=== PATIENT | female | born 1940 | race Caucasian/White ===

== ENCOUNTER 2023-05-26 13:14 | Inpatient (IN) | payer MEDICARE, SELFPAY ==
--- NOTE | ~2023-05-26 | CT_ITS ---
EXAMINATION: CT HEAD WITHOUT CONTRAST (STROKE PROTOCOL) CLINICAL INFORMATION: Stroke protocol. Weakness after near syncopal episode. COMPARISON: None available. TECHNIQUE: Contiguous axial imaging was performed from the skull base to vertex without intravenous administration of contrast. This CT examination was performed using dose optimization techniques as appropriate, variously including the following: *Automated exposure control *Adjustment of mA and/or kV according to patient size (this includes techniques or standardized protocols for targeted exams where dose is matched to indication/reason for exam; i.e. extremities or head) *Use of iterative reconstruction technique DLP: 764 mGy-cm FINDINGS: No intracranial hemorrhage, large infarction, or mass lesion is seen. Mild, age-appropriate chronic bilateral periventricular white matter ischemic change. No extra-axial collection is appreciated. The ventricles are normal in size and configuration without evidence of hydrocephalus. The visualized paranasal sinuses and mastoid air cells are clear. Bilateral lens extractions. CT/CT head for stroke IMPRESSION: No acute intracranial finding. Dr. Go was directly informed of the findings by telephone at approximately 1:35 PM on 05/26/2023.
--- NOTE | ~2023-05-26 | MR_ITS ---
EXAMINATION: MR BRAIN WITHOUT CONTRAST CLINICAL INFORMATION: Near syncope. Seizure. COMPARISON: CTA head and neck from 05/26/2023. TECHNIQUE: MRI of the brain was obtained using routine sequences without contrast. FINDINGS: No focal restricted diffusion is demonstrated to suggest acute or subacute cerebral ischemia. No evidence of acute or chronic hemorrhagic products on heme-sensitive imaging. Scattered and partially confluent periventricular, deep white matter, and brainstem T2 FLAIR hyperintensities consistent with moderate underlying microangiopathy. The ventricles are normal in morphology and size. No abnormal mass effect. No midline shift. The hippocampi are symmetric in size, contour, and signal intensity. The temporal horns appear symmetric. Normal appearance of the pituitary gland. Normal positioning of the cerebellar tonsils. Normal arterial and venous vascular flow voids are present. Normal, homogeneous marrow signal. Mild mucosal thickening of the paranasal sinuses. No signal abnormalities within the mastoids. Bilateral lens extractions. MR/MR head/brain wo con IMPRESSION: 1. No acute intracranial abnormalities. 2. Moderate underlying microangiopathy. 3. No additional MRI abnormalities to explain the patient's spells.
--- NOTE | ~2023-05-26 | CT_ITS ---
EXAMINATION: CT angio head neck stroke CLINICAL INFORMATION: Right-sided weakness after near syncopal episode. COMPARISON: CT head 05/26/2023. TECHNIQUE: Ticket Sales Supervisor images were obtained. A CT angiogram of the head and neck was performed in the arterial phase after the intravenous administration of 70 mL Omnipaque 350. 3D images were processed on an independent workstation under concurrent supervision. Arterial stenoses are measured in accordance with NASCET criteria or similar method if applicable. This CT examination was performed using dose optimization techniques as appropriate, including one or more of the following: Automated exposure control, iterative reconstruction, and adjustment of technique factors (mA and/or kVp) according to patient size (this includes techniques or standardized protocols for targeted exams where dose is matched to indication/reason for exam). Fleischner Society criteria for the followup of incidental pulmonary nodules was implemented if appropriate. Total exam dose-length product 1632 mGy-cm FINDINGS: CT angiogram neck: Scattered atheromatous calcification involves the aortic arch apex. Origins of the major aortic branches are patent. Common carotid arteries are normal. There is a small amount of eccentric atherosclerotic plaque at the carotid bifurcations. No stenosis of the extracranial internal carotid arteries. Cervical segments of the vertebral arteries are patent. CT angiogram head: Intracranial internal carotid arteries are normal. Intradural vertebral artery segments and basilar artery are normal. Anterior, middle, and posterior cerebral complexes are normal. No intracranial large vessel occlusion. No identifiable aneurysm or high flow vascular lesion. Other: There is a multinodular thyroid goiter. The dominant nodule within the left thyroid lobe measures up to 2.4 centers in diameter. Visualized soft tissues of the neck are otherwise unremarkable. Lung apices are clear. No acute osseous finding. Specifically no worrisome lytic or blastic osseous lesion. There is multilevel degenerative spondylosis of the cervical spine. Grossly no spinal canal compromise. CT/CT angio head neck stroke IMPRESSION: Unremarkable examination in that there is no stenosis of the cervical carotid or vertebral arteries. No intracranial large vessel occlusion. This critical result was discussed with Rosy Go at 1:49 PM on 05/26/2023 and it was ascertained that the content and urgency of the report was understood at the time of direct communication.
--- NOTE | 2023-05-26 13:19 | ECG_ITS ---
Test Reason : STROKE Blood Pressure : / mmHG Vent. Rate : 065 BPM Atrial Rate : 065 BPM P-R Int : 134 ms QRS Dur : 092 ms QT Int : 432 ms P-R-T Axes : 049 017 024 degrees QTc Int : 449 ms Normal sinus rhythm Normal ECG No previous ECGs available Referred By: Rosy Go Electronically Signed By:Gene Cope
--- NOTE | 2023-05-26 13:27 | ED_ITS ---
HPI - Neuro Symptoms/Deficit General Chief Complaint: Stroke Stated Complaint: R SIDED WEAKNESS SLURRED SPEECH Time Seen by Provider: 05/26/23 13:15 Source: patient Mode of arrival: EMS Limitations: no limitations History of Present Illness HPI Narrative: 82 yo female with PMH of HTN prior seizure in 80s confirmed by EEG not on seizure medications for many years was at [facility] about to eat a bagel when she felt weak, tunnel vision like she was going to pass out. Staff saw R arm shake then almost had full syncopal event. Upon waking she denies confusion. No full body shaking no incontinence, no postictal state. EMS report aphasia and R sided weakness that is improving. On arrival to the ED she has no weakness or aphasia but when raising R arm she has noted tremors. Onset (ago): minute(s) (20) Timing confirmed by: caregiver Location: speech, right arm and right leg History of same: No Severity: moderate Quality: weak Relieving factors: time and rest Exacerbating factors: none Context: sudden onset On Anticoagulants: No Associated symptoms: other (occurred after near syncopal event while sitting and shaking in R arm noted) Treatments Prior to Arrival: none Related Data Home Medications Medication Instructions Recorded Confirmed aspirin 81 mg chewable tablet 81 mg PO BEDTIME 05/26/23 05/26/23 cholecalciferol (vitamin D3) 25 25 mcg PO DAILY 05/26/23 05/26/23 mcg (1,000 unit) tablet hydrochlorothiazide 25 mg tablet 25 mg PO DAILY 05/26/23 05/26/23 ibuprofen 600 mg tablet (IBU) 600 mg PO TID PRN Pain 05/26/23 05/26/23 lisinopril 10 mg tablet 10 mg PO DAILY 05/26/23 05/26/23 multivitamin 1 tab PO DAILY 05/26/23 05/26/23 omega-3 fatty acids 1,000 mg PO DAILY 05/26/23 05/26/23 vitamin B complex 1 cap PO DAILY 05/26/23 05/26/23 vitamins A,C,H-kfoa-fmaygh 2,148 1 tab PO DAILY 05/26/23 05/26/23 mcg-113 mg-45 mg-17.4 mg tablet (PreserVision AREDS) zolpidem 10 mg tablet 5 mg PO BEDTIME insomnia 05/26/23 05/26/23 Allergies Allergy/AdvReac Type Severity Reaction Status Date / Time Unable to Assess Allergy Verified 05/26/23 13:19 Review of Systems Review of Systems: Constitutional : No Fever, No Chills, No Fatigue ENT/Mouth : No sore throat, No Rhinorrhea Eyes: No Eye Pain, No Swelling, No Redness Cardiovascular : No Chest Pain, No SOB, No Dyspnea on Exertion Respiratory : No Cough, No Sputum Gastrointestinal : No Nausea, No Vomiting, No Diarrhea, No abdominal Pain Genitourinary : No Dysuria, No Urinary Frequency, No Hematuria, Musculoskeletal : No joint pain, No Myalgias, No Joint Swelling Skin : No Skin Lesions, No rash Neuro : pos Weakness, No Numbness, No Dizziness, no Headache, pos near syncope Psych : No Anxiety/Panic, No Depression All other systems reviewed and are negative [facility] Past Medical History Source: old records reviewed Medical History HTN (hypertension) Seizure Social History Social History (Updated 05/26/23 @ 13:36 by Rosy Go DO) Alcohol intake: current Alcohol intake frequency: holidays/special occasions only Patient Tobacco Use Status: Never used Tobacco Smoked in Last 30 Days: No Use of substances other than those prescribed or required for medical reasons: No Advance Directives: No Physical Exam Vital Signs: Vital Signs: Last Vital Signs Temp 98.1 F 05/26/23 13:52 Pulse 88 05/26/23 13:52 Resp 18 05/26/23 13:52 BP 155/60 H 05/26/23 13:52 Pulse Ox 99 05/26/23 13:52 O2 Del Method Room Air 05/26/23 13:52 BMI result Body Mass Index 39.9 Appearance: Alert. Oriented X3. No acute distress. Eyes: Pupils equal, round and reactive to light. ENT: Pharynx normal. Neck: Normal inspection. Neck supple. CVS: Normal heart rate and rhythm. Pulses normal. Respiratory: No respiratory distress. Breath sounds normal. Abdomen: Soft and nontender. Skin: Skin warm and dry. Normal skin color. Normal skin turgor. Extremities: No lower extremity edema. No calf ttp Neuro: Oriented X 3. No motor deficit. No sensory deficit. slight tremor in R arm when raising but otherwise intact Medications Administered Discontinued Medications Generic Name Dose Route Start Last Admin Trade Name Freq PRN Reason Stop Dose Admin Aspirin 325 mg 05/26/23 14:32 05/26/23 15:01 Aspirin Enteric Coated 325 Mg Tablet. PO 05/26/23 14:33 325 mg ONCE ONE Administration Iohexol 70 ml 05/26/23 13:39 05/26/23 13:40 Iohexol 350 Mg/Ml 100 Ml Infus..Btl IV 05/26/23 13:40 70 ml ONCE ONE Administration Medical Decision Making Medical Decision Making MDM Narrative: 82 yo female with PMH of seizures but no events since the not on medications, HTN had near syncopal event then shaking on R arm noted and re portedly then had aphasia and R sided weakness with EMS her symptoms of speech are resolved the only thing noted is with arm raising that she has a slight tremor. Her NIH is 0 symptoms are mild and not debilitating and rapidly improving she is not a candidate for TNK. She will get labs, EKG, stroke protocol. Differential Diagnosis Differential Diagnoses: The differential diagnosis associated with the presentation includes TIA, stroke, focal seizure, near syncope Admission/Observation Consideration of admission/observation: Escalation of care including admission/observation considered will need admission for TIA vs focal seizure Consult Healthcare Provider Management of the patient was discussed with: Hospitalist (will admit) Lab Data [facility] Lab Attestation statement: I reviewed the patient's lab results. Independent Interpretation I performed an independent interpretation of an: EKG and CT Scan Interpretation: Rate: 65 Rhythm: NSR [place]: normal Normal P waves. Normal ANTHONY. Normal QRS complex. ST T wave : normal no MASOOD qTC: 449 prior studies: no acute ischemia The study has been interpreted contemporaneously by me. . Radiology Impression Discussion of test interpretation with radiology: I discussed test interpretation with the radiologist and I have reviewed the radiologist's reading. Radiologist Impression: 136pm no ICH 149pm CTA negative no LVO Independent Historian Clinical information obtained from an independent historian. History obtained from or confirmed by: EMS NIH Stroke Scale Internal: Initial- Upon Arrival Level of Consciousness: Alert Level of Consciousness Questions: Answers both questions correctly Level of Consciousness Commands: Performs both tasks correctly Best Gaze: Normal Visual: No visual loss Facial Palsy: Normal Motor Arm (Right): No drift Motor Arm (Left): No drift Motor Leg (Right): No drift Motor Leg (Left): No drift Sensory: Normal Best Language: No aphasia Dysarthia: Normal Extinction and Inattention: No abnormality Critical Care Time Critical Care Time Critical Care Time: Yes Total Critical Care Time: 45 Attestation: stroke protocol, family discussion I attest to this time spent taking care of the patient Discharge Plan Discharge Clinical Impression: Near syncope Transient cerebral ischemia Qualifiers: Transient cerebral ischemia type: unspecified Qualified Code(s): G45.9 - Transient cerebral ischemic attack, unspecified Patient Disposition: Admitted As Inpatient
[2023-05-26 13:31] VITALS: BP 115/60; PULSE 74; O2SAT 98
[2023-05-26] MEDS: iohexoL 350 MG/ML 100 ML INFUS..BTL 70 ML IV (13:40)
[2023-05-26 13:52] VITALS: BP 155/60; PULSE 88; RESP 18; TEMP 36.7; O2SAT 99; BMI 39.9
[2023-05-26] MEDS: Aspirin Enteric Coated 325 MG TABLET.DR PO (15:01)
--- NOTE | 2023-05-26 15:03 | PC.NURSE ---
alert and oriented, respirations even and unlabored. passed swallow eval, medicated per the MAR. speaking in full clear sentences
--- NOTE | 2023-05-26 15:14 | PHA.MEDREC ---
Pharmacy Consult ? Medication Reconciliation Pharmacy has completed the medication reconciliation. Confirmed medications with patient and through claim history. Patient reports that she takes 1 tab of preservision and not the recommended dose of 2 tabs because she has a reaction (diarrhea).
[2023-05-26 16:23] LABS: Appearance Urine Clear; Color Urine Yellow; Glucose Urine UA Negative (Negative); Leukocyte Esterase Urine Negative (Negative); Nitrite Urine Negative (Negative); PH 6.5 (5.0-9.0); Specific Gravity - Urine <= 1.005 (1.005-1.025); Urine Blood Negative (Negative); Urine Ketones Negative (Negative); Urine Protein Negative (Neg-Trace)
--- NOTE | 2023-05-26 17:03 | PC.NURSE ---
ambulated to the bathroom to provide urine sample with steady gait. patient difficult stick, multiple attempts to obtain blood work.
[2023-05-26 18:21] VITALS: BP 131/55; PULSE 69; RESP 16; O2SAT 96
--- NOTE | 2023-05-26 18:25 | PC.NURSE ---
lab work obtained and sent
[2023-05-26 18:28] LABS: MANUAL DIFF FLAG NO
[2023-05-26 18:32] LABS: Basophils Percent Auto 0.5 % (0-2); Eosinophils Absolute Auto 0.1 X10*3/uL (0.0-0.4); Eosinophils Percent Auto 1.2 % (0-4); Hematocrit 40.2 % (37.0-47.0); Hemoglobin 13.2 g/dl (12.0-16.0); Imm Gran Abs Auto 0.05 X10*3/uL (0.00-0.03); Imm Gran Pct Auto 0.6 % (0.0-0.4); Lymphocytes Absolute Auto 1.4 X10*3/uL (1.2-4.9); Lymphocytes Percent Auto 18.3 % (20-40); Mean Corpuscular HGB Conc 32.8 g/dl (31.0-35.0); Mean Corpuscular Volume 91.4 fL (80.0-98.0); Mean Platelet Volume 11.2 fL (9.4-12.3); Monocytes Absolute Auto 0.6 X10*3/uL (0.1-1.2); Monocytes Percent Auto 7.4 % (2-11); Neutrophils Absolute Auto 5.6 x10*3/uL (2.0-8.3); Platelet Count 185 X10*3/uL (160-400); White Blood Count 7.7 X10*3/uL (4.8-10.8)
[2023-05-26 18:39] LABS: Prothrombin Time 12.5 SEC (11.1-13.3)
[2023-05-26 18:41] LABS: Partial Thromboplastin Time 25.4 SEC (26.0-36.8)
[2023-05-26 18:53] LABS: Alanine Aminotransferase 17 U/L (0-31); Albumin Level 3.7 g/dL (3.5-5.0); Alkaline Phosphatase 90 U/L (39-117); Anion Gap 11 (12-20); Aspartate Amino Transferase 21 U/L (5-31); Bilirubin Direct 0.2 mg/dL (0.0-0.5); Bilirubin Total 0.4 mg/dL (0.0-1.0); Blood Urea Nitrogen 31 mg/dL (9-16); Calcium 9.1 mg/dL (8.4-10.2); Carbon Dioxide 28 mmol/L (22-29); Chloride 104 mmol/L (96-108); Cholesterol 160 mg/dL (<200); Creatinine Clr Calc Pharmacy 60.5; Estimated Glomerular Filt Rate 59; Glucose Random 153 mg/dL (60-115); HDL Cholesterol 53 mg/dL (>40); LDL Cholesterol Calculated 94 mg/dL (<100); Lipase 75 U/L (8-78); Magnesium 1.9 mg/dL (1.6-2.6); Potassium 3.4 mmol/L (3.3-5.1); Sodium 140 mmol/L (135-145); Total Protein 6.2 g/dL (6.5-8.0); Triglycerides 66 mg/dL (<150)
[2023-05-26 19:01] LABS: Troponin-I High Sensitivity < 2.7 ng/L (<3.5-17.0)
[2023-05-26 19:09] LABS: Glucose, Whole Blood 114 mg/dL (60-115)
[2023-05-26 19:11] VITALS: BP 149/61; PULSE 69; RESP 18; TEMP 36.8; O2SAT 95
--- NOTE | 2023-05-26 19:11 | PC.NURSE ---
Assumed care of pt. Pt lying on stretcher, family at bedside. Pt neuro intact, AxO x4, speech clear, no deficits, symmetrical. VSS as charted. Pending disposition.
--- NOTE | 2023-05-26 20:07 | PM.IMHP ---
History of Present Illness Date of Service: 05/26/23 Attending physician on admission: Lashon Buckner Chief Complaint: dizziness, near syncope, rue convulsions 82 year old female with history of hypertension, right breast cancer s/p mastectomy, and remote history of seizure disorder (grand mal seziure x2 on eeg in 1983, no meds since) presented to the ED earlier today following an episode of near-syncope and convulsions that occurred earlier today while at the [facility]. She states that she was seated eating a bagel playing bridge with friends when she developed sudden onset generalized weakness, malaise, sweats, flushed face, blurred/tunnel vision, and dizziness. She states this lasted for about 15 minutes before resolving. However, after the episode, friends noted she appeared very pale. She states also during the episode, while in the ambulance, and on arrival to the hospital, she was experiencing right upper extremity tremors/convulsions with weakness/heaviness in the arm that has now resolved. She states she had a similar episodes several years ago and was seen at [facility] with negative cardiac work up (unremarkable echo and holter per patient) without any recurrence since. She denies fevers, chills, st, recent illness, abd pain, nausea, vomiting, diarrhea, urinary symptoms, cough, sob, palpitations, or chest pain. No ongoing visual changes, weakness, paresthesias, or lightheadedness. On arrival patient slighty hypertensive to 149/61, vitals otherwise normal. Orthostatic VS requested. Hematology studies unremarkable. Renal function and electrolyte levels baseline. Hemoglobin A1c pending. Troponin Will detectable limits. Hepatic function normal. Cholesterol levels within normal limits. Urinalysis unremarkable. CT head negative for any acute intracranial abnormality. CTA head/neck negative for any acute intracranial abnormality, hemodynamically significant stenosis or large vessel occlusion. EKG shows NSR, rate 65, no ST/T-wave abnormality. In the ED, given 325 mg aspirin. Review of Systems Review of Systems: Yes all other systems are reviewed and are negative [facility] Medical History HTN (hypertension) Seizure Social History (Updated 05/26/23 @ 13:36 by Rosy Go DO) Alcohol intake: current Alcohol intake frequency: holidays/special occasions only Patient Tobacco Use Status: Never used Tobacco Smoked in Last 30 Days: No Use of substances other than those prescribed or required for medical reasons: No Advance Directives: No Meds Allergies Allergy/AdvReac Type Severity Reaction Status Date / Time carbamazepine [From Tegretol] Allergy Rash Verified 05/26/23 20:22 celecoxib [From Celebrex] Allergy Rash Verified 05/26/23 20:22 desvenlafaxine [From Pristiq] Allergy Rash Verified 05/26/23 20:22 gabapentin Allergy Rash Verified 05/26/23 20:22 hydromorphone [From Dilaudid] Allergy Rash Verified 05/26/23 20:22 naproxen Allergy Rash Verified 05/26/23 20:22 Penicillins Allergy Rash Verified 05/26/23 20:22 phenytoin [From Dilantin] Allergy Rash Verified 05/26/23 20:22 pregabalin [From Lyrica] Allergy Rash Verified 05/26/23 20:22 sulfamethoxazole Allergy Rash Verified 05/26/23 20:22 [From Bactrim] Tetracyclines Allergy Rash Verified 05/26/23 20:22 tramadol [From Ultram] Allergy Rash Verified 05/26/23 20:22 trimethoprim [From Bactrim] Allergy Rash Verified 05/26/23 20:22 Active Medications: Current Medications Acetaminophen (Acetaminophen 325 Mg Tablet) 650 mg PO Q6H PRN PRN Reason: Pain, Mild (Pain Scale 1-3) Aspirin (Aspirin 81 Mg Tab.Chew) 81 mg PO BEDTIME [facility] Enoxaparin Sodium (Enoxaparin Sodium 40 Mg/0.4 Ml Syringe) 40 mg SUBCUT Q24H [facility] Hydrochlorothiazide (Hydrochlorothiazide 25 Mg Tablet) 25 mg PO DAILY [facility]; Protocol Lisinopril (Lisinopril 10 Mg Tablet) 10 mg PO DAILY JOEY; Protocol Multivitamins/Vitamin C (Multivitamin Tablet) 1 tab PO DAILY [facility] Non-Formulary Medication ([place]-3 Fatty Acids) 1,000 mg PO DAILY [facility] Ondansetron HCl (Ondansetron Hcl 4 Mg/2 Ml Vial) 4 mg IVPUSH Q8H PRN PRN Reason: Nausea and Vomiting Senna (Sennosides 8.6 Mg Tablet) 17.2 mg PO BEDTIME PRN PRN Reason: Constipation Sodium Chloride (0.9 % Sodium Chloride Flush 3 Ml Syringe) 3 ml IVFLUSH QSHIFT [facility] Vitamin D (Cholecalciferol (Vitamin D3) 25 Mcg Tablet) 25 mcg PO DAILY [facility] Home Medications Medication Instructions Recorded Confirmed Last Taken Type aspirin 81 mg chewable tablet 81 mg PO BEDTIME 05/26/23 05/26/23 05/25/23 History cholecalciferol (vitamin D3) 25 25 mcg PO DAILY 05/26/23 05/26/23 05/26/23 History mcg (1,000 unit) tablet hydrochlorothiazide 25 mg tablet 25 mg PO DAILY 05/26/23 05/26/23 05/26/23 History ibuprofen 600 mg tablet (IBU) 600 mg PO TID PRN Pain 05/26/23 05/26/23 Unknown History lisinopril 10 mg tablet 10 mg PO DAILY 05/26/23 05/26/23 05/26/23 History multivitamin 1 tab PO DAILY 05/26/23 05/26/23 05/26/23 History omega-3 fatty acids 1,000 mg PO DAILY 05/26/23 05/26/23 05/26/23 History vitamin B complex 1 cap PO DAILY 05/26/23 05/26/23 05/26/23 History vitamins A,C,B-qlpa-shorza 2,148 1 tab PO DAILY 05/26/23 05/26/23 05/26/23 History mcg-113 mg-45 mg-17.4 mg tablet (PreserVision AREDS) zolpidem 10 mg tablet 5 mg PO BEDTIME insomnia 05/26/23 05/26/23 05/25/23 History Physical Exam Vital Signs and Narrative: Vital Signs: Last Vital Signs Temp 98.2 F 05/26/23 19:11 Pulse 69 05/26/23 19:11 Resp 18 05/26/23 19:11 BP 149/61 H 05/26/23 19:11 Pulse Ox 95 05/26/23 19:11 O2 Del Method Room Air 05/26/23 19:11 BMI result Body Mass Index 39.9 Constitutional - Awake and Alert, No apparent distress Eyes - PERRLA, EOMI Cardiovascular - S1S2, RRR, No edema Respiratory - Normal lung expansion, Normal respiratory effort, No respiratory distress, CTA bilaterally Gastrointestinal - NT / ND; +BS; No rebound or guarding Extremities - no calf tenderness bilaterally, no swelling Skin - Warm/Dry Neurological - Alert & oriented x3, CN II-XII in tact, 5/5 strength BUE and BLE Psychological - Appropriate affect Results Labs 05/26/23 18:20 05/26/23 18:20 Labs: Laboratory Results - last 24 hr 05/26/23 05/26/23 05/26/23 16:09 18:20 19:04 MCV 91.4 MCH 30.0 MCHC 32.8 RDW 14.0 Plt Count 185 MPV 11.2 Immature Gran % (Auto) 0.6 H Neut % (Auto) 72.0 Lymph % (Auto) 18.3 L [place] % (Auto) 7.4 Eos % (Auto) 1.2 Baso % (Auto) 0.5 Lymph # (Auto) 1.4 [place] # (Auto) 0.6 Eos # (Auto) 0.1 Baso # (Auto) 0.0 Abs Immat Gran (auto) 0.05 H Absolute Neuts (auto) 5.6 Absolute Nucleated RBC 0.000 Nucleated RBC % (auto) 0.0 PT 12.5 INR 1.0 APTT 25.4 L Anion Gap 11 L Estim Creat Clear Calc 60.5 Estimated GFR 59 POC Glucose 114 Random Glucose 153 H Calcium 9.1 Magnesium 1.9 Total Bilirubin 0.4 Direct Bilirubin 0.2 AST 21 ALT 17 Alkaline Phosphatase 90 Troponin I High Sens < 2.7 Total Protein 6.2 L Albumin 3.7 Triglycerides 66 Cholesterol 160 LDL Cholesterol, Calc 94 HDL Cholesterol 53 Lipase 75 Urine Color Yellow Urine Appearance Clear Urine pH 6.5 Ur Specific [place] <= 1.005 Urine Protein Negative Urine Glucose (UA) Negative Urine Ketones Negative Urine Blood Negative Urine Nitrite Negative Ur Leukocyte Esterase Negative Imaging Radiologist's Impressions: Impressions Head CT 05/26/23 13:25 IMPRESSION: No acute intracranial finding. Dr. Go was directly informed of the findings by telephone at approximately 1:35 PM on 05/26/2023. Head/Neck CTA 05/26/23 13:41 IMPRESSION: Unremarkable examination in that there is no stenosis of the cervical carotid or vertebral arteries. No intracranial large vessel occlusion. This critical result was discussed with Rosy Go at 1:49 PM on 05/26/2023 and it was ascertained that the content and urgency of the report was understood at the time of direct communication. Assessment and Plan (1) Near syncope: Status: Acute (2) Convulsion: Status: Acute Plan 82 year old female with history of hypertension, right breast cancer s/p mastectomy, and remote history of seizure disorder (grand mal seziure x2 on eeg in 1983, no meds since) admitted for further evaluation of near syncope and suspected seizures. #Near syncope with convulsion/seizure -Head CT negative for acute intracranial abnormality. CTA head/neck negative for acute abnormality, flow-limiting stenosis, or large vessel occlusion -lower suspicion for TIA/CVA given clinical picture -EEG ordered -MRI brain ordered -neurology consult -seizure precautions -check orthostatic vital signs now. If positive, hold hydrochlorothiazide and give IV fluids -monitor on telemetry # hypertension -blood pressure reasonably controlled -continue lisinopril and hydrochlorothiazide (unless orthostatic vital signs are positive in which case HCTZ will be held) DVT prophylaxis-Lovenox Full code Patient requires inpatient stay at least 2 midnights for further management of near syncopal episode with associated convulsions/seizures requiring further investigation with EEG, MRI as well as expert consultation as well as close neurologic and cardiac monitoring Quality Stroke Does the patient have a stroke diagnosis?: No VTE Prior VTE?: No VTE Risk Level:: Medical - moderate - high VTE Device Contraindication: Treatment Not Indicated VTE Drug Contraindication: N/A - Med Ordered
[2023-05-26] MEDS: LORazepam 2 MG/ML VIAL 0.5 MG IVPUSH (20:27)
[2023-05-26 20:37] VITALS: BP 127/74; BP 134/70; BP 142/65; PULSE 79; PULSE 86; PULSE 90
--- NOTE | 2023-05-26 20:58 | PC.NURSE ---
Pt taken to MRI
--- NOTE | 2023-05-26 22:16 | PC.NURSE ---
Pt returned from MRI
[2023-05-26] MEDS: Acetaminophen 325 MG TABLET 650 MG PO (22:18)
[2023-05-26] MEDS: Aspirin 81 MG TAB.CHEW PO (22:18)
[2023-05-26] MEDS: Zolpidem Tartrate 5 MG TABLET PO (22:18)
[2023-05-26] MEDS: Enoxaparin Sodium 40 MG/0.4 ML SYRINGE SUBCUT (22:19)
[2023-05-26 22:27] VITALS: BP 137/67; PULSE 70; RESP 18; TEMP 36.6; O2SAT 94
--- NOTE | 2023-05-27 | EEG_ITS ---
FINDINGS: Waking background activity consists of a moderate voltage 9 hertz posterior alpha frequency intermixed with low voltage fast frequencies anteriorly. The patient drifts in and out of drowsiness. On a few occasions, some sharp configuration waves are seen from the left temporal region in the mid temporal area. Photic stimulation was without activation. No sleep stages are identified. IMPRESSION: This EEG is considered borderline abnormal due to a few incidences of sharp configuration waves seen from the left temporal region that may suggest focus on minimal cerebral irritability in the left temporal region. Therefore, seizure disorder was strongly suspected and outpatient 48-hour ambulatory EEG is recommended. MD PORSHA Rodney/ARNIE / [id number]
[2023-05-27] MEDS: 0.9 % Sodium Chloride Flush 3 ML SYRINGE IVFLUSH ×3 (00:47→17:53)
[2023-05-27 04:03] VITALS: BP 133/58; PULSE 68; RESP 15; TEMP 36.7; O2SAT 98
[2023-05-27 05:18] LABS: Estimated Average Glucose 103 mg/dL; Hemoglobin A1c % 5.2 % (<6.0)
[2023-05-27 06:16] LABS: Basophils Absolute Auto 0.1 X10*3/uL (0.0-0.2); Basophils Percent Auto 0.9 % (0-2); Eosinophils Absolute Auto 0.2 X10*3/uL (0.0-0.4); Eosinophils Percent Auto 3.5 % (0-4); Hematocrit 39.8 % (37.0-47.0); Hemoglobin 13.1 g/dl (12.0-16.0); Imm Gran Abs Auto 0.02 X10*3/uL (0.00-0.03); Imm Gran Pct Auto 0.3 % (0.0-0.4); Lymphocytes Absolute Auto 1.8 X10*3/uL (1.2-4.9); Lymphocytes Percent Auto 26.3 % (20-40); MANUAL DIFF FLAG NO; Mean Corpuscular HGB Conc 32.9 g/dl (31.0-35.0); Mean Corpuscular Hemoglobin 30.6 pg (27.0-33.0); Monocytes Absolute Auto 0.7 X10*3/uL (0.1-1.2); Monocytes Percent Auto 10.8 % (2-11); Neutrophils Absolute Auto 3.9 x10*3/uL (2.0-8.3); Neutrophils Percent Auto 58.2 % (45-73); Platelet Count 180 X10*3/uL (160-400); Red Blood Count 4.28 X10*6/uL (4.20-5.50); Red Cell Distribution Width 14.4 % (11.0-16.0); White Blood Count 6.7 X10*3/uL (4.8-10.8)
[2023-05-27 06:36] LABS: Anion Gap 12 (12-20); Blood Urea Nitrogen 29 mg/dL (9-16); Calcium 8.9 mg/dL (8.4-10.2); Carbon Dioxide 28 mmol/L (22-29); Chloride 105 mmol/L (96-108); Creatinine Clr Calc Pharmacy 52.4; Estimated Glomerular Filt Rate 50; Glucose Random 87 mg/dL (60-115); Potassium 3.3 mmol/L (3.3-5.1); Sodium 142 mmol/L (135-145)
[2023-05-27 07:59] VITALS: BP 127/62; PULSE 66; RESP 21; TEMP 36.7; O2SAT 97
--- NOTE | 2023-05-27 08:45 | MHC.CM.PN ---
IMM 05/27/23, Pt lives alone, she is independent, no home health services or medical equipment. HCP will be completed and added to chart. PCP is: Claire Christianson, at [facility] in [place], [place]. She may need assistance with transportation to go home at DC. CM to follow and assist with DC plan.
[2023-05-27] MEDS: lisinopriL 10 MG TABLET PO (09:18)
[2023-05-27] MEDS: Cholecalciferol (Vitamin D3) 25 MCG TABLET PO (09:18)
[2023-05-27] MEDS: hydroCHLOROthiazide 25 MG TABLET PO (09:18)
[2023-05-27] MEDS: Multivitamin TABLET 1 TAB PO (09:18)
[2023-05-27 11:09] VITALS: BP 145/68; PULSE 65; RESP 20; TEMP 36.3; O2SAT 98
--- NOTE | 2023-05-27 11:47 | P.PNIM_ITS ---
Subjective Subjective Date of Service: 05/27/23 Interval History: no further episodes Physical Exam 2 Vital Signs: Vital Signs: Last Vital Signs Temp 97.4 F 05/27/23 11:09 Pulse 65 05/27/23 11:09 Resp 20 05/27/23 11:09 BP 145/68 H 05/27/23 11:09 Pulse Ox 98 05/27/23 11:09 O2 Del Method Room Air 05/27/23 11:09 BMI result Body Mass Index 39.9 Appearance: Alert. Oriented X3. No acute distress. Eyes: Pupils equal, round and reactive to light. ENT: Pharynx normal. Neck: Normal inspection. Neck supple. CVS: Normal heart rate and rhythm. Pulses normal. Respiratory: No respiratory distress. Breath sounds normal. Abdomen: Soft and nontender. Skin: Skin warm and dry. Normal skin color. Normal skin turgor. Extremities: No lower extremity edema. No calf ttp Neuro: Oriented X 3. No motor deficit. No sensory deficit. slight tremor in R arm when raising but otherwise intact Objective Data Active Medications Acetaminophen (Acetaminophen 325 Mg Tablet) 650 mg PO Q6H PRN PRN Reason: Pain, Mild (Pain Scale 1-3) Last Admin: 05/26/23 22:18 Dose: 650 mg Documented By: GRACE Aspirin (Aspirin 81 Mg Tab.Chew) 81 mg PO BEDTIME [facility] Last Admin: 05/26/23 22:18 Dose: 81 mg Documented By: GRACE Enoxaparin Sodium (Enoxaparin Sodium 40 Mg/0.4 Ml Syringe) 40 mg SUBCUT Q24H [facility] Last Admin: 05/26/23 22:19 Dose: 40 mg Documented By: GRACE Hydrochlorothiazide (Hydrochlorothiazide 25 Mg Tablet) 25 mg PO DAILY [facility]; Protocol Last Admin: 05/27/23 09:18 Dose: 25 mg Documented By: MIGDALIA Ibuprofen (Ibuprofen 600 Mg Tablet) 600 mg PO TID PRN PRN Reason: Pain, Mild (Pain Scale 1-3) Lisinopril (Lisinopril 10 Mg Tablet) 10 mg PO DAILY [facility]; Protocol Last Admin: 05/27/23 09:18 Dose: 10 mg Documented By: MIGDALIA Multivitamins/Vitamin C (Multivitamin Tablet) 1 tab PO DAILY [facility] Last Admin: 05/27/23 09:18 Dose: 1 tab Documented By: MIGDALIA Ondansetron HCl (Ondansetron Hcl 4 Mg/2 Ml Vial) 4 mg IVPUSH Q8H PRN PRN Reason: Nausea and Vomiting Senna (Sennosides 8.6 Mg Tablet) 17.2 mg PO BEDTIME PRN PRN Reason: Constipation Sodium Chloride (0.9 % Sodium Chloride Flush 3 Ml Syringe) 3 ml IVFLUSH QSHIFT [facility] Last Admin: 05/27/23 07:46 Dose: 3 ml Documented By: JOEL Vitamin D (Cholecalciferol (Vitamin D3) 25 Mcg Tablet) 25 mcg PO DAILY [facility] Last Admin: 05/27/23 09:18 Dose: 25 mcg Documented By: MIGDALIA Zolpidem Tartrate (Zolpidem Tartrate 5 Mg Tablet) 5 mg PO BEDTIME [facility] Last Admin: 05/26/23 22:18 Dose: 5 mg Documented By: GRACE Labs 05/27/23 04:44 05/27/23 04:44 Labs: Laboratory Results - last 24 hr 05/26/23 05/26/23 05/26/23 16:09 18:20 19:04 MCV 91.4 MCH 30.0 MCHC 32.8 RDW 14.0 Plt Count 185 MPV 11.2 Immature Gran % (Auto) 0.6 H Neut % (Auto) 72.0 Lymph % (Auto) 18.3 L [place] % (Auto) 7.4 Eos % (Auto) 1.2 Baso % (Auto) 0.5 Lymph # (Auto) 1.4 [place] # (Auto) 0.6 Eos # (Auto) 0.1 Baso # (Auto) 0.0 Abs Immat Gran (auto) 0.05 H Absolute Neuts (auto) 5.6 Absolute Nucleated RBC 0.000 Nucleated RBC % (auto) 0.0 PT 12.5 INR 1.0 APTT 25.4 L Anion Gap 11 L Estim Creat Clear Calc 60.5 Estimated GFR 59 POC Glucose 114 Random Glucose 153 H Estimat Average Glucose 103 Hemoglobin A1c % 5.2 Calcium 9.1 Magnesium 1.9 Total Bilirubin 0.4 Direct Bilirubin 0.2 AST 21 ALT 17 Alkaline Phosphatase 90 Troponin I High Sens < 2.7 Total Protein 6.2 L Albumin 3.7 Triglycerides 66 Cholesterol 160 LDL Cholesterol, Calc 94 HDL Cholesterol 53 Lipase 75 Urine Color Yellow Urine Appearance Clear Urine pH 6.5 Ur Specific [place] <= 1.005 Urine Protein Negative Urine Glucose (UA) Negative Urine Ketones Negative Urine Blood Negative Urine Nitrite Negative Ur Leukocyte Esterase Negative 05/27/23 04:44 MCV 93.0 MCH 30.6 MCHC 32.9 RDW 14.4 Plt Count 180 MPV 12.0 Immature Gran % (Auto) 0.3 Neut % (Auto) 58.2 Lymph % (Auto) 26.3 [place] % (Auto) 10.8 Eos % (Auto) 3.5 Baso % (Auto) 0.9 Lymph # (Auto) 1.8 [place] # (Auto) 0.7 Eos # (Auto) 0.2 Baso # (Auto) 0.1 Abs Immat Gran (auto) 0.02 Absolute Neuts (auto) 3.9 Absolute Nucleated RBC 0.000 Nucleated RBC % (auto) 0.0 PT INR APTT Anion Gap 12 Estim Creat Clear Calc 52.4 Estimated GFR 50 POC Glucose Random Glucose 87 Estimat Average Glucose Hemoglobin A1c % Calcium 8.9 Magnesium Total Bilirubin Direct Bilirubin AST ALT Alkaline Phosphatase Troponin I High Sens Total Protein Albumin Triglycerides Cholesterol LDL Cholesterol, Calc HDL Cholesterol Lipase Urine Color Urine Appearance Urine pH Ur Specific [place] Urine Protein Urine Glucose (UA) Urine Ketones Urine Blood Urine Nitrite Ur Leukocyte Esterase Assessment and Plan (1) Convulsion: Status: Acute Plan 82F PMH htn, right breast ca, remote history of seizure admitted for near syncope and suspected seizure suspected seizure neuro eval mri negative eeg htn lisinoipirl, hctz dvt prophylaxis - lovenox full code reason for continued hospitalization:awaiting neuro, eeg Quality Stroke Does the patient have a stroke diagnosis?: No VTE Prior VTE?: No VTE Risk Level:: Medical - moderate - high VTE Device Contraindication: Treatment Not Indicated VTE Drug Contraindication: N/A - Med Ordered
--- NOTE | 2023-05-27 13:08 | P.CDIM_ITS ---
PROVIDER RESPONSE TEXT: To clarify, the appropriate diagnosis supported by the clinical indicators: Obesity Due to excess calories QUERY TEXT: PHYSICIAN'S DOCUMENTATION REQUEST Date of Query: 05/27/2023 12:15 PM EDT Patient Name: Shelly Barrientos Admit Date: 05/27/2023 Dear Leighton Gunn, A review of the medical record indicates additional documentation may be needed. Please review below and update the documentation accordingly. Clinical Indicators: Height: 5ft 6in Weight: 112.2kg BMI: 39.9 If possible, please provide an associated diagnosis related to the abnormal BMI, such as: Overweight Obesity Due to excess calories Obesity Due to other cause Specify the other cause Severe or Morbid Obesity With alveolar hypoventilation Severe or Morbid Obesity Without alveolar hypoventilation BMI is not significant Other (explain) Clinically unable to determine (explain) Thank you, Mohini Jones, CCS, CDIS Use of terms such as suspected, likely, concern for, or probable (associated with a specific diagnosi s that is being evaluated, monitored, or treated as if it exists) are acceptable and can be coded in the inpatient se tting, when documented at the time of discharge. Please use your independent medical judgment in providing your response. THIS QUERY IS PART OF THE PERMANENT MEDICAL RECORD
--- NOTE | 2023-05-27 15:09 | PM.NEUROCN ---
History of Present Illness Data of Consult Service Date: 05/27/23 Primary Care Provider: ABILIO Hernadez [facility] Reason for consult: Episode of not feeling well with some tremors of the extended right upper e 82 year old female with history of hypertension, right breast cancer s/p mastectomy, and remote history of seizure disorder (grand mal seziure x2 on eeg in 1983, no meds since) presented to the ED earlier today following an episode of Not feeling well, Getting flushed, but no-syncope or convulsions that occurred earlier today while at the [facility]. She states that she was seated eating a bagel playing bridge with friends when she developed sudden onset generalized weakness, malaise, sweats, flushed face, blurred/tunnel vision, and dizziness. She states this lasted for about 15 minutes before resolving. However, after the episode, friends noted she appeared very pale. She states also during the episode, while in the ambulance, and on arrival to the hospital, she was experiencing right upper extremity tremors/convulsions with weakness/heaviness in the arm that has now resolved. She states she had a similar episodes several years ago and was seen at [facility] with negative cardiac work up (unremarkable echo and holter per patient) without any recurrence since. She denies fevers, chills, st, recent illness, abd pain, nausea, vomiting, diarrhea, urinary symptoms, cough, sob, palpitations, or chest pain. No ongoing visual changes, weakness, paresthesias, or lightheadedness. CTA negtaive, MRI negative for acute stroke Review of Systems Review of Systems: Constitutional : No Fever, No Chills, No Fatigue ENT/Mouth : No sore throat, No Rhinorrhea Eyes: No Eye Pain, No Swelling, No Redness Cardiovascular : No Chest Pain, No SOB, No Dyspnea on Exertion Respiratory : No Cough, No Sputum Gastrointestinal : No Nausea, No Vomiting, No Diarrhea, No abdominal Pain Genitourinary : No Dysuria, No Urinary Frequency, No Hematuria, Musculoskeletal : No joint pain, No Myalgias, No Joint Swelling Skin : No Skin Lesions, No rash Neuro : pos Weakness, No Numbness, No Dizziness, no Headache, pos near syncope Psych : No Anxiety/Panic, No Depression All other systems reviewed and are negative Yes all other systems are reviewed and are negative PMFSH Past Medical History Medical History HTN (hypertension) Seizure Social History Social History (Updated 05/26/23 @ 13:36 by Rosy Go DO) Household Members: None Housing: House Alcohol intake: current Alcohol intake frequency: holidays/special occasions only Patient Tobacco Use Status: Never used Tobacco Second Hand Smoke Exposure: No service: No Meds Allergies Allergy/AdvReac Type Severity Reaction Status Date / Time carbamazepine [From Tegretol] Allergy Rash Verified 05/26/23 20:22 celecoxib [From Celebrex] Allergy Rash Verified 05/26/23 20:22 desvenlafaxine [From Pristiq] Allergy Rash Verified 05/26/23 20:22 gabapentin Allergy Rash Verified 05/26/23 20:22 hydromorphone [From Dilaudid] Allergy Rash Verified 05/26/23 20:22 naproxen Allergy Rash Verified 05/26/23 20:22 Penicillins Allergy Rash Verified 05/26/23 20:22 phenytoin [From Dilantin] Allergy Rash Verified 05/26/23 20:22 pregabalin [From Lyrica] Allergy Rash Verified 05/26/23 20:22 sulfamethoxazole Allergy Rash Verified 05/26/23 20:22 [From Bactrim] Tetracyclines Allergy Rash Verified 05/26/23 20:22 tramadol [From Ultram] Allergy Rash Verified 05/26/23 20:22 trimethoprim [From Bactrim] Allergy Rash Verified 05/26/23 20:22 Active Medications: Current Medications Acetaminophen (Acetaminophen 325 Mg Tablet) 650 mg PO Q6H PRN PRN Reason: Pain, Mild (Pain Scale 1-3) Last Admin: 05/26/23 22:18 Dose: 650 mg Aspirin (Aspirin 81 Mg Tab.Chew) 81 mg PO BEDTIME JOEY Last Admin: 05/26/23 22:18 Dose: 81 mg Enoxaparin Sodium (Enoxaparin Sodium 40 Mg/0.4 Ml Syringe) 40 mg SUBCUT Q24H [facility] Last Admin: 05/26/23 22:19 Dose: 40 mg Hydrochlorothiazide (Hydrochlorothiazide 25 Mg Tablet) 25 mg PO DAILY [facility]; Protocol Last Admin: 05/27/23 09:18 Dose: 25 mg Ibuprofen (Ibuprofen 600 Mg Tablet) 600 mg PO TID PRN PRN Reason: Pain, Mild (Pain Scale 1-3) Lisinopril (Lisinopril 10 Mg Tablet) 10 mg PO DAILY [facility]; Protocol Last Admin: 05/27/23 09:18 Dose: 10 mg Multivitamins/Vitamin C (Multivitamin Tablet) 1 tab PO DAILY [facility] Last Admin: 05/27/23 09:18 Dose: 1 tab Ondansetron HCl (Ondansetron Hcl 4 Mg/2 Ml Vial) 4 mg IVPUSH Q8H PRN PRN Reason: Nausea and Vomiting Senna (Sennosides 8.6 Mg Tablet) 17.2 mg PO BEDTIME PRN PRN Reason: Constipation Sodium Chloride (0.9 % Sodium Chloride Flush 3 Ml Syringe) 3 ml IVFLUSH QSHIFT [facility] Last Admin: 05/27/23 07:46 Dose: 3 ml Vitamin D (Cholecalciferol (Vitamin D3) 25 Mcg Tablet) 25 mcg PO DAILY [facility] Last Admin: 05/27/23 09:18 Dose: 25 mcg Zolpidem Tartrate (Zolpidem Tartrate 5 Mg Tablet) 5 mg PO BEDTIME [facility] Last Admin: 05/26/23 22:18 Dose: 5 mg Home Medications ?Medication ?Instructions ?Recorded ?Confirmed ?Last Taken ?Type aspirin 81 mg chewable tablet 81 mg PO BEDTIME 05/26/23 05/26/23 05/25/23 History cholecalciferol (vitamin D3) 25 25 mcg PO DAILY 05/26/23 05/26/23 05/26/23 History mcg (1,000 unit) tablet hydrochlorothiazide 25 mg tablet 25 mg PO DAILY 05/26/23 05/26/23 05/26/23 History ibuprofen 600 mg tablet (IBU) 600 mg PO TID PRN Pain 05/26/23 05/26/23 Unknown History lisinopril 10 mg tablet 10 mg PO DAILY 05/26/23 05/26/23 05/26/23 History multivitamin 1 tab PO DAILY 05/26/23 05/26/23 05/26/23 History omega-3 fatty acids 1,000 mg PO DAILY 05/26/23 05/26/23 05/26/23 History vitamin B complex 1 cap PO DAILY 05/26/23 05/26/23 05/26/23 History vitamins A,C,C-cedt-poomnt 2,148 1 tab PO DAILY 05/26/23 05/26/2305/25/24 History mcg-113 mg-45 mg-17.4 mg tablet (PreserVision AREDS) zolpidem 10 mg tablet 5 mg PO BEDTIME insomnia 05/26/23 05/26/23 05/25/23 History Physical Exam Vital Signs: Vital Signs: Last Vital Signs Temp 97.4 F 05/27/23 11:09 Pulse 65 05/27/23 11:09 Resp 20 05/27/23 11:09 BP 145/68 H 05/27/23 11:09 Pulse Ox 98 05/27/23 11:09 O2 Del Method Room Air 05/27/23 11:09 BMI result Body Mass Index 39.9 Neuro: Other: Alert and oriented with normal cognitive functions. Cranial nerves II through XII normal. Muscle tone and strength normal in all 4 extremities. DTRs symmetrical ankle reflexes diminished Results Labs 05/27/23 04:44 05/27/23 04:44 Labs: Short CBC 05/26/23 05/27/23 Range/Units 18:20 04:44 WBC 7.7 6.7 (4.8-10.8) X10*3/uL Hgb 13.2 13.1 (12.0-16.0) g/dl Hct 40.2 39.8 (37.0-47.0) % Plt Count 185 180 (160-400) X10*3/uL BMP 05/26/23 05/27/23 18:20 04:44 Sodium 140 142 Potassium 3.4 3.3 Chloride 104 105 Carbon Dioxide 28 28 BUN 31 H 29 H Creatinine 0.91 1.05 Calcium 9.1 8.9 Liver Function 05/26/23 Range/Units 18:20 Total Bilirubin 0.4 (0.0-1.0) mg/dL Direct Bilirubin 0.2 (0.0-0.5) mg/dL AST 21 (5-31) U/L ALT 17 (0-31) U/L Alkaline Phosphatase 90 (39-117) U/L Albumin 3.7 (3.5-5.0) g/dL Urine 05/26/23 Range/Units 16:09 Urine Color Yellow Urine Appearance Clear Urine pH 6.5 (5.0-9.0) Ur Specific [place] <= 1.005 (1.005-1.025) Urine Protein Negative (Neg-Trace) mg/dL Urine Glucose (UA) Negative (Negative) mg/dL Assessment and Plan (1) Convulsion: Status: Acute It does not appear like she ojeda d a Sz. Neurological imaging negative CTA and MRI, EEG Plan 82F PMH htn, right breast ca, remote history of seizure admitted for near syncope and suspected seizure suspected seizure neuro eval mri negative eeg htn lisinoipirl, hctz dvt prophylaxis - lovenox full code reason for continued hospitalization:awaiting neuro, eeg Procedures Date of Service Date of Service: 06/23/23
[2023-05-27 15:19] VITALS: BP 141/77; PULSE 68; RESP 18; TEMP 36.2; O2SAT 98
[2023-05-27 19:24] VITALS: BP 144/65; PULSE 70; RESP 19; TEMP 36.8; O2SAT 96
[2023-05-27] MEDS: Zolpidem Tartrate 5 MG TABLET PO (22:27)
[2023-05-27] MEDS: Acetaminophen 325 MG TABLET 650 MG PO (22:27)
[2023-05-27] MEDS: Aspirin 81 MG TAB.CHEW PO (22:27)
[2023-05-27] MEDS: Enoxaparin Sodium 40 MG/0.4 ML SYRINGE SUBCUT (22:29)
[2023-05-27 23:46] VITALS: BP 160/67; PULSE 72; RESP 19; TEMP 36.6; O2SAT 97
[2023-05-28 04:00] VITALS: BP 143/86; PULSE 86; RESP 18; TEMP 36.3; O2SAT 92
[2023-05-28 07:12] VITALS: BP 159/74; PULSE 68; RESP 18; TEMP 35.8; O2SAT 97
[2023-05-28] MEDS: hydroCHLOROthiazide 25 MG TABLET PO (09:23)
[2023-05-28] MEDS: Multivitamin TABLET 1 TAB PO (09:23)
[2023-05-28] MEDS: Cholecalciferol (Vitamin D3) 25 MCG TABLET PO (09:23)
[2023-05-28] MEDS: lisinopriL 10 MG TABLET PO (09:23)
[2023-05-28] MEDS: 0.9 % Sodium Chloride Flush 3 ML SYRINGE IVFLUSH (09:23)
[2023-05-28 11:08] VITALS: BP 134/62; PULSE 68; RESP 18; TEMP 35.7; O2SAT 99
--- NOTE | 2023-05-28 11:09 | P.DS_ITS ---
DS: Providers Provider Date of Service: 05/28/23 Date of admission: 05/26/23 20:03 Primary care physician: ABILIO Hernadez Consults: 05/26/23 20:02 Consult to Neurology Routine Consulting Provider: [facility] Reason for consultation: near syncope, seizure DS: Diagnosis Discharge Diagnosis (1) Convulsion: Status: Acute DS: Summary Hospital Course Hospital Course: from initial hpi: 82 year old female with history of hypertension, right breast cancer s/p mastectomy, and remote history of seizure disorder (grand mal seziure x2 on eeg in 1983, no meds since) presented to the ED earlier today following an episode of near-syncope and convulsions that occurred earlier today while at the [facility]. She states that she was seated eating a bagel playing bridge with fri ends when she developed sudden onset generalized weakness, malaise, sweats, flushed face, blurred/tunnel vision, and dizziness. She states this lasted for about 15 minutes before resolving. However, after the episode, friends noted she appeared very pale. She states also during the episode, while in the ambulance, and on arrival to the hospital, she was experiencing right upper extremity tremors/convulsions with weakness/heaviness in the arm that has now resolved. She states she had a similar episodes several years ago and was seen at [facility] with negative cardiac work up (unremarkable echo and holter per patient) without any recurrence since. She denies fevers, chills, st, recent illness, abd pain, nausea, vomiting, diarrhea, urinary symptoms, cough, sob, palpitations, or chest pain. No ongoing visual changes, weakness, paresthesias, or lightheadedness. On arrival patient slighty hypertensive to 149/61, vitals otherwise normal. Orthostatic VS requested. Hematology studies unremarkable. Renal function and electrolyte levels baseline. Hemoglobin A1c pending. Troponin Will detectable limits. Hepatic function normal. Cholesterol levels within normal limits. Urinalysis unremarkable. CT head negative for any acute intracranial abnormality. CTA head/neck negative for any acute intracranial abnormality, hemodynamically significant stenosis or large vessel occlusion. EKG shows NSR, rate 65, no ST/T-wave abnormality. In the ED, given 325 mg aspirin. hospital course: Patient was admitted for suspected seizure. MRI was negative. EEG showed suspicion for epileptic activity. Discussion was had with neurology recommended starting Keppra 250 mg b.i.d. and following up outpatient. Patient has no more events inpatient. For hypertension was continued on lisinopril and hydrochlorothiazide. Patient will be discharged home. Time Attestation Discharge Coordination Time (in mins): 35 Quality: Safe Use of Opioids Does Pt have an Active Cancer Diagnosis on the Problem List?: No Quality: Stroke Does the patient have a stroke diagnosis?: No Physical Exam Vital Signs: Vital Signs: Last Vital Signs Temp 96.5 F L 05/28/23 07:12 Pulse 68 05/28/23 07:12 Resp 18 05/28/23 07:12 BP 159/74 H 05/28/23 07:12 Pulse Ox 97 05/28/23 07:12 O2 Del Method Room Air 05/28/23 07:12 BMI result Body Mass Index 39.9 General: AO X 3, no acute distress Resp: CTA bilateral, no accessory muscles used CVS: S1,S2,RRR GI: soft, non tender, non distended Neuro: motor grossly intact, alert Psych: appropriate affect, appropriate insight Discharge Plan Discharge Anticipated Discharge Date/Time: 05/28/23 11:07 Patient Disposition: Home, Self-Care Discharge Diagnosis: sieuzre Referrals: Mihir Talley MD [Physician] - 1 Week Claire Zacarias PA [Primary Care Provider] - 1 Week Discharge Medications: New levetiracetam [Keppra] 250 mg tablet 250 mg PO BID Qty: 180 0RF Continued lisinopril 10 mg tablet 10 mg PO DAILY hydrochlorothiazide 25 mg tablet 25 mg PO DAILY ibuprofen [IBU] 600 mg tablet 600 mg PO TID PRN (Reason: Pain) zolpidem 10 mg tablet 5 mg PO BEDTIME vitamin B complex Capsule 1 cap PO DAILY multivitamin Tablet 1 tab PO DAILY omega-3 fatty acids Capsule 1,000 mg PO DAILY PreserVision AREDS 2,148 mcg-113 mg-45 mg-17.4mg Tablet 1 tab PO DAILY aspirin 81 mg Tablet,Chewable 81 mg PO BEDTIME cholecalciferol (vitamin D3) 25 mcg (1,000 unit) Tablet 25 mcg PO DAILY Discharge Orders: Discharge Order (Routine); Ordered 05/28/23 Ordered By: Leighton Gunn Diet: Advance to usual diet Activity on Discharge: As tolerated Stand Alone Forms: Patient Portal Discharge page Care Plan Goals: avoid seizures Health Concerns: seizure Plan of Treatment: keppra 250mg bid, follow up with neuro, no driving Assessment: see above
--- NOTE | 2023-05-28 12:35 | MHC.CM.PN ---
Pt has been medically cleared for DC, she will go home via family transport, self care.
== END 2023-05-28 13:28 | disposition home or self-care (01) | DRG 101 ==
LOC: HO.ED 16:04 → HO.EDOVER 20:10 → HO.IMC 05-27 07:11
PROVIDERS: Emergency Medicine; Admitting Provider Physician Assistant; Emergency Provider Emergency Medicine; PCP Physician Assistant Medical; Visit Provider Internal Medicine
DX: G40.909 Epilepsy, unspecified, not intractable, without status epilepticus (principal); E66.09 Other obesity due to excess calories; I10 Essential (primary) hypertension; Z85.3 Personal history of malignant neoplasm of breast; Z68.39 Body mass index [BMI] 39.0-39.9, adult; Z79.82 Long term (current) use of aspirin; Z79.899 Other long term (current) drug therapy
CPT/HCPCS: 36415; 70450; 70496; 70498; 70551; 80048; 80061; 80076; 81003; 82947; 83036; 83690; 83735; 84484; 85025; 85610; 85730; 93005; 95816; 99285; J1650; J2060; Q9967

== ENCOUNTER → 2023-05-26 13:19 | Outpatient (BNV) | payer MEDICARE, SELFPAY | PROVIDERS: Admitting Provider Physician Assistant; Emergency Provider Emergency Medicine; Visit Provider Internal Medicine Cardiovascular Disease | DX: I63.9 Cerebral infarction, unspecified (principal) | CPT/HCPCS: 93010 ==

== ENCOUNTER → 2023-05-26 20:03 | Outpatient (BNV) | payer MEDICARE, SELFPAY | PROVIDERS: Admitting Provider Physician Assistant; Emergency Provider Emergency Medicine; Visit Provider Physician Assistant | DX: R56.9 Unspecified convulsions (principal) | CPT/HCPCS: 99223; 99232; 99239 ==

== ENCOUNTER → 2023-05-26 20:03 | Outpatient (BNV) | payer MEDICARE, SELFPAY | PROVIDERS: Admitting Provider Physician Assistant; Emergency Provider Emergency Medicine; PCP Physician Assistant Medical; Visit Provider Psychiatry & Neurology Neurology | DX: R56.9 Unspecified convulsions (principal) | CPT/HCPCS: 99222 ==